=== PATIENT | male | born 1945 | race Caucasian/White ===

== ENCOUNTER → 2022-01-23 | Outpatient (CLI) | payer MEDICARE, BC ==
--- NOTE | 2022-01-23 13:57 | US ---
EXAMINATION TYPE: US kidneys/renal and bladder DATE OF EXAM: 01/23/2022 COMPARISON: NONE CLINICAL HISTORY: R30.0 DYSURIA, R10.30 LOWER ABD PAIN. UTI, pelvic pain, hematuria EXAM MEASUREMENTS: Right Kidney: 11.6 x 4.8 x 4.8 cm Left Kidney: 11.0 x 5.1 x 5.7 cm Right Kidney: No hydronephrosis or masses seen Left Kidney: No hydronephrosis or masses seen Bladder: wnl Bilateral Jets seen: no There is no evidence for hydronephrosis at this point in time. No nephrolithiasis is seen. No ella s are identified. Cortical medullary differentiation is maintained The urinary bladder is anechoic. Bilateral ureteral jets are not seen. IMPRESSION: Unremarkable renal ultrasound
== END | disposition home or self-care (01) ==
LOC: RADUSWWP 12:50
PROVIDERS: ATTEND Family Medicine
DX: R30.0 Dysuria (principal); R10.30 Lower abdominal pain, unspecified
CPT/HCPCS: 76770

== ENCOUNTER 2022-05-05 10:12 | Day surgery (SDC) | payer MEDICARE, BC ==
[2022-05-01 15:58] VITALS: BMI 31.1
[~2022-05-05 10:12] MED LIST: LACTATED RINGERS 1,000 ML IV SCH; SODIUM CHLORIDE 0.9% 1,000 ML IV SCH; ceFAZolin 1 GM in SODIUM CHLORIDE 0.9% IRRIG BTL 250 ML IRRIGATION PRN
[2022-05-05] MEDS ORDERED: IOPAMIDOL-370 50ML BTL MISCELLANE ONE (14:00)
[2022-05-05] MEDS ORDERED: LIDOCAINE 1% INJ 10MG/ML (30 ML VIAL-PF) SQ ONE (14:20)
--- NOTE | 2022-05-05 16:27 | P.EPPROC ---
- EP Procedure Note Electrophysiology Procedure Note: Patient underwent by ventricular pacing with left bundle pacing Left bundle pacing parameters are as follows Unipolar parameters Stim to the peak of the QRS in V6 equals 71 ms QRS width, placed, unipolar equals 155 ms,rsR' With bipolar pacing QR pattern Stimulus to peak of QRS and V6 equals 75 ms
--- NOTE | 2022-05-05 16:34 | P.EPPROC ---
- EP Procedure Note Electrophysiology Procedure Note: Diagnosis 2-1 AV block, advanced AV block with IVCD, heart rates in the 30s Bradycardia, standard pacemaker will result in RV pacing >40% Procedure LV/ biventricular pacemaker implantation with LB pacing Details Patient was brought to the EP lab in a fasting state. Written informed consent was obtained prior to the procedure. Conscious sedation provided by anesthesia team IV antibiotics administered. Local anesthesia administered. A 4 cm incision made in the pectoral area. Subfascial pocket made. Venous access obtained Venous sheaths placed. Leads placed in the right heart. Initially the septal sheath, S 10 was used. However this seemed to be short and would not reach the left bundle area Several attempts were made with this sheath but for left fundal pacing could not be achieved Therefore we switched to the standard His bundle sheath treated with this we will decrease the left bundle area and screwed and successfully Atrial lead position the right atrial appendage. Medtronic screw-in lead Patient was 3.9, good current of injury, 10 V test negative, pacing impedance 627 ohms, pacing threshold 0.75 V at 0.5 ms RV lead position in the RV apex. Medtronic screw-in lead No R waves, pace 30 beats a minute, pacing impedance 893 ohms, oozing threshold 11 warted 0.5 ms Left bundle lead screwed in the left fundal area. Unipolar parameters were as follows Stim to QRS peak in V6 = 71 ms He is QRS width =155 ms rSR' morphology Unipolar pacing parameters for left bundle pacing 532 ohms LB Pacing threshold 0.5 V at 0.5ms In bipolar mode, QRS morphology, stim to QRS speak in lead V6 75 ms Biventricular pacemaker device connected to the leads and placed in the alejandro bfascial pocket Patient tolerated the procedure well without acute complications None adaptive LV-RV offset 80 ms, effective MANAGER SPRING
[2022-05-05] MEDS ORDERED: CHOLECALCIFEROL 25 MCG (1000 IU) TABLET PO SCH (17:30)
[2022-05-05] MEDS ORDERED: ACETAMINOPHEN IV (For NPO) 1,000 MG in EMPTY BAG 1 BAG IVPB ONE (17:30)
[2022-05-05] MEDS: carvediloL 3.125 MG TAB PO SCH (18:23)
[2022-05-05] MEDS ORDERED: PRAVASTATIN SODIUM 80 MG TAB PO SCH (21:00)
[2022-05-05] MEDS ORDERED: LOSARTAN 50 MG TAB PO SCH (21:00)
[2022-05-05] MEDS: ACETAMINOPHEN TAB 325 MG TAB PO PRN (21:04)
[2022-05-06 02:49] VITALS: PULSE 60; RESP 18
[2022-05-06] MEDS: ACETAMINOPHEN TAB 325 MG TAB PO PRN (02:56)
[2022-05-06] MEDS ORDERED: LEVOTHYROXINE 50 MCG TAB PO SCH (06:30)
--- NOTE | 2022-05-06 07:06 | XR ---
EXAMINATION TYPE: XR chest 1V portable DATE OF EXAM: 05/06/2022 COMPARISON: Chest x-ray October 04, 2015 HISTORY: Pacemaker placement TECHNIQUE: Single AP portable frontal upright view of the chest is obtained. FINDINGS: There is new multi lead pacemaker with leads terminating at level of coronary sinus, right atrium, and right ventricle. The lungs remain clear without pneumothorax seen bilaterally. The card iac silhouette size remains within normal limits. Multilevel spurring of thoracic spine redemonstrate d. IMPRESSION: As above.
[2022-05-06 08:23] VITALS: BP 160/85; TEMP 97.7
[2022-05-06] MEDS ORDERED: hydroCHLOROthiazide 25 MG TAB PO SCH (09:00)
[2022-05-06] MEDS ORDERED: carvediloL 6.25 MG TAB PO SCH (09:15)
--- NOTE | 2022-05-06 09:55 | P.DS ---
Providers Attending physician: Tom Velásquez [facility] Course: Patient is doing well. No chest discomfort dizziness or lightheadedness Pacemaker site is healed well. Minimal soakage No hematoma On examination blood pressure is 160/82 mmHg pulse rate in the 60s afebrile Heart sounds are normal Breath sounds are clear Impression Advanced heart block/severe bradycardia Hypertension Status post biventricular pacemaker with left bundle pacing Patient underwent conduction system pacing for advanced heart block Left bundle branch pacing Plan Add carvedilol 6.25 mg twice daily Continue all other medications Discharge home today Chest x-ray is within normal limits Pacemaker interrogation is within normal limits excellent thresholds Follow Dr. Velásquez/Lillian Kimble in 3-4 weeks for hypertension management Follow-up with PCP, Dr. Sommers Patient Condition at Discharge: Stable Plan - Discharge Summary Discharge Rx Participant: No New Discharge Prescriptions: No Action Losartan Potassium [Cozaar] 100 mg PO HS Levothyroxine Sodium [Euthyrox] 50 mcg PO DAILY Cholecalciferol [Vitamin D3 (125 Mcg = 5000 Iu)] 100 mcg PO AC-SUPPER hydroCHLOROthiazide [Hydrodiuril] 25 mg PO DAILY Pravastatin Sodium [Pravachol] 80 mg PO HS Discharge Medication List Losartan Potassium [Cozaar] 100 mg PO HS 04/15/16 [History] Cholecalciferol [Vitamin D3 (125 Mcg = 5000 Iu)] 100 mcg PO AC-SUPPER 10/03/21 [History] Levothyroxine Sodium [Euthyrox] 50 mcg PO DAILY 10/03/21 [History] Pravastatin Sodium [Pravachol] 80 mg PO HS 10/03/21 [History] hydroCHLOROthiazide [Hydrodiuril] 25 mg PO DAILY 10/03/21 [History] Follow up Appointment(s)/Referral(s): Tom Velásquez MD [STAFF PHYSICIAN] - 1 Week (Device clinic follow-up within 7 days Follow-up with Dr. Velásquez/Lillian Kimble in 3-4 weeks for hypertension management Discharge home today new Medication, carvedilol 6.25 mg twice daily ) Activity/Diet/Wound Care/Special Instructions: PATIENT EDUCATION MATERIAL Instructions following a heart rhythm device implant. 1. Keep dressing DRY for 5 DAYS. You may cover the area with Saran or Cling Wrap, prior to a shower. 2. The dressing will be removed in the Device Clinic at [facility]. Absorbable sutures were used to close the wound. 3. Avoid raising the left arm above the shoulder level. 4 week restriction 4. Avoid arm movements, like backscratching, rubbing the head, or pulling on a cord. 4 weeks restriction 5. Gentle range of motion movements of the shoulder, closest to the incision should be performed to avoid a frozen shoulder. (Pendulum exercises of the shoulder) 6. The opposite arm may be used freely. 7. Avoid driving for 7 days. 8. Avoid activities such as golfing, swimming, weed whacking, lifting more than 10 pounds weight, bowling, gymnastics and weight training/lifting. (6 weeks restriction) 9. Activities such as wood chopping with an axe, pull-ups in the gymnasium, power lifting, arc-welding, being close to home induction cooktops will always be a problem. 10. Arm sling is only a reminder not to raise the arm above the head. You do not need to keep the arm completely immobilized. Your free to move the arm and use it and for normal activities. In case of any problems, please call [facility], Michael Sim, @ [phone], Attention: Device Clinic Device clinic follow-up in 5 days Follow-up with primary counterintelligence specialist in 2-3 months New medication Carvedilol 6.25 mg twice daily Discharge Disposition: HOME SELF-CARE
[2022-05-06] MEDS: carvediloL 3.125 MG TAB PO SCH (09:59)
[2022-05-06] MEDS ORDERED: HYDROcodone/APAP 5-325MG 1 EACH TAB PO PRN (10:51)
--- NOTE | 2022-05-06 12:30 | CA ---
Transthoracic Echo Report Name: Godfrey Hagen Age: 76 Gender: M : 1945 Exam Date: 05/06/2022 11:31 Exam Location: [place] [facility] Ht (in): 72 Wt (lb): 229 Ordering Physician: Bebe Gee Attending/Referring Phys: Checkering Machine Operator Cassia Hunt RDCS Procedure CPT: Indications: assess pericardium, s/p PPM, chest pain Cardiac Hx: Technical Quality: Contrast 1: Total Dose (mL): Contrast 2: Total Dose (mL): MEASUREMENTS (Male / Female) Normal Values 2D ECHO LV Diastolic Diameter PLAX 4.2 cm 4.2 - 5.9 / 3.9 - 5.3 cm LV Systolic Diameter PLAX 3.0 cm IVS Diastolic Thickness 1.3 cm 0.6 - 1.0 / 0.6 - 0.9 cm LVPW Diastolic Thickness 1.4 cm 0.6 - 1.0 / 0.6 - 0.9 cm LV Relative Wall Thickness 0.6 FINDINGS Left Ventricle Limited study. Mildly increased left ventricular wall thickness. Left ventricular ejection fraction is estimated at 50-55 %. Right Ventricle Right Atrium Catheter/pacemaker wire in the right atrial cavity. Left Atrium Mitral Valve Aortic Valve Tricuspid Valve Pulmonic Valve Pericardium No pericardial effusion. Aorta CONCLUSIONS Increased LV mass with preserved systolic function No evidence for pericardial effusion Previewed by: Dr. Tom Velásquez MD (Electronically Signed) Final Date: 06 May 2022 12:29
[2022-05-06] MEDS ORDERED: IBUPROFEN 600 MG TAB PO STA (13:09)
[2022-05-06] MEDS ORDERED: COLCHICINE 0.6 MG EACH PO SCH (13:15)
== END 2022-05-06 15:45 | disposition home or self-care (01) ==
LOC: CATHEP 10:12 → 6NMEDSUR 16:21 → CATHEP 05-06 15:45
PROVIDERS: ATTEND Internal Medicine Clinical Cardiac Electrophysiology
DX: I44.1 Atrioventricular block, second degree (principal); R00.1 Bradycardia, unspecified; I47.2 Ventricular tachycardia; E78.5 Hyperlipidemia, unspecified; G47.33 Obstructive sleep apnea (adult) (pediatric); Z98.890 Other specified postprocedural states; I10 Essential (primary) hypertension; Z79.890 Hormone replacement therapy; Z79.899 Other long term (current) drug therapy; Z88.5 Allergy status to narcotic agent; Z80.0 Family history of malignant neoplasm of digestive organs; Z82.49 Family history of ischemic heart disease and other diseases of the circulatory system
CPT/HCPCS: 93308; 33225; 33208; 87635; 71045; C1769 ×4; C2621; C1887; C1892; C1898; J0690 ×2; J2001; J0131; Q9967

== ENCOUNTER 2024-02-10 21:32 | Emergency (ER) | payer MEDICARE, BC ==
[2024-02-10 21:57] VITALS: TEMP 98.4
[2024-02-10] MEDS: SODIUM CHLORIDE 0.9% 1,000 ML IV STA (22:00)
--- NOTE | 2024-02-10 22:03 | ED ---
General Adult HPI - General Chief complaint: Dizziness Stated complaint: dizziness elevated BP NV Time Seen by Provider: 02/10/24 21:39 Source: patient, RN notes reviewed, old records reviewed Mode of arrival: ambulatory Limitations: no limitations - History of Present Illness Initial comments: 78-year-old male presenting with nausea and vomiting. Patient has had symptoms for the past day and a half. No significant abdominal pain. No fever. Patient believes he is dehydrated. He does report that his blood pressure has been elevated. He denies diarrhea. Denies chest pain. Denies focal numbness or weakness. - Related Data Home Medications Medication Instructions Recorded Confirmed Losartan Potassium [Cozaar] 100 mg PO HS 04/15/16 05/05/22 Cholecalciferol [Vitamin D3 (125 100 mcg PO AC-SUPPER 10/03/21 05/01/22 Mcg = 5000 Iu)] Levothyroxine Sodium [Euthyrox] 50 mcg PO DAILY 10/03/21 05/01/22 Pravastatin Sodium [Pravachol] 80 mg PO HS 10/03/21 05/05/22 hydroCHLOROthiazide [Hydrodiuril] 25 mg PO DAILY 10/03/21 05/01/22 Previous Rx's Medication Instructions Recorded carvediloL [Coreg] 6.25 mg PO BID #180 tablet 05/06/22 Allergies Allergy/AdvReac Type Severity Reaction Status Date / Time codeine AdvReac Hallucinations-took Verified 02/10/24 21:37 doses to close to each other Review of Systems ROS Statement: Those systems with pertinent positive or pertinent negative responses have been documented in the HPI. ROS Other: All systems not noted in ROS Statement are negative. Past Medical History Past Medical History: Hearing Disorder / Deafness, Hyperlipidemia, Hypertension, Sleep Apnea/CPAP/BIPAP, Thyroid Disorder Additional Past Medical History / Comment(s): Tachycardia. Lt inguinal hernia, tinnitus, and Vtach. Uses CPAP History of Any Multi-Drug Resistant Organisms: None Reported Past Surgical History: Cardiac Ablation, Hernia Repair Additional Past Surgical History / Comment(s): Rt inguinal hernia. Past Anesthesia/Blood Transfusion Reactions: No Reported Reaction Past Psychological History: No Psychological Hx Reported Smoking Status: Never smoker Past Alcohol Use History: None Reported Past Drug Use History: None Reported - Past Family History Sister(s) Additional Family Medical History / Comment(s): mult medical problems Mother Family Medical History: Cancer Additional Family Medical History / Comment(s): at age 58. General Exam Limitations: no limitations General appearance: alert, in no apparent distress Head exam: Present: atraumatic, normocephalic Eye exam: Present: normal appearance, PERRL, EOMI. Absent: nystagmus ENT exam: Present: mucous membranes dry Neck exam: Present: normal inspection. Absent: tenderness, meningismus Respiratory exam: Present: normal lung sounds bilaterally. Absent: respiratory distress, wheezes Cardiovascular Exam: Present: regular rate, normal rhythm GI/Abdominal exam: Present: soft. Absent: distended, tenderness, guarding Extremities exam: Present: normal inspection, normal capillary refill. Absent: pedal edema Neurological exam: Present: alert, oriented X3, CN II-XII intact, other (No ataxia no focal findings). Absent: motor sensory deficit Psychiatric exam: Present: normal affect, normal mood Skin exam: Present: warm, intact Course Vital Signs 02/10/24 02/10/24 02/10/24 21:34 22:07 23:03 Temperature 98.4 F Pulse Rate 80 70 74 Respiratory 18 17 18 Rate Blood Pressure 184/92 170/86 165/87 O2 Sat by Pulse 97 96 95 Oximetry 02/11/24 00:00 Temperature Pulse Rate 70 Respiratory 17 Rate Blood Pressure 165/93 O2 Sat by Pulse 95 Oximetry - Reevaluation(s) Reevaluation #1: 02/10/24 23:00 Patient care signed out to Dr. Townsend, Medical Decision Making - Medical Decision Making Was pt. sent in by a medical professional or institution (, PA, FLIGHT TEST SHOP MECHANIC, urgent care, hospital, or [facility]...) When possible be specific @ -No Did you speak to anyone other than the patient for history (EMS, parent, family, police, friend...)? What history was obtained from this source @ -No Did you review nursing and triage notes (agree or disagree)? Why? @ -I reviewed and agree with nursing and triage notes Were old charts reviewed (outside hosp., previous admission, EMS record, old EKG, old radiological studies, urgent care reports/EKG's, [facility] records)? Report findings @ -No old charts were reviewed Differential Diagnosis differential Dizziness: Benign paroxysmal positional Vertigo, Menieres disease, otitis media, acoustic neuroma, vertebrobasilar insufficiency, cerebellar stroke, encephalitis, hypovolemic, arrhythmia, coronary artery syndrome, anemia, this is not meant to be an all-inclusive list EKG interpreted by me (3pts min.). @EKG: Paced rhythm rate of 72 FL interval 224, QRS duration 170, QTc 483. X-rays interpreted by me (1pt min.). @ -None done CT interpreted by me (1pt min.). @ -None done U/S interpreted by me (1pt. min.). @ -None done What testing was considered but not performed or refused? (CT, X-rays, U/S, labs)? Why? @ -None What meds were considered but not given or refused? Why? @ -None Did you discuss the management of the patient with other professionals (professionals i.e. , PA, FLIGHT TEST SHOP MECHANIC, lab, RT, psych nurse, director social welfare, template reproduction technician, teacher, fire control officer, caser up)? Give summary @ -No Was smoking cessation discussed for >3mins.? @ -No Was critical care preformed (if so, how long)? @ -No Were there social determinants of health that impacted care today? How? (Homelessness, low income, unemployed, alcoholism, drug addiction, transportation, low edu. Level, literacy, decrease access to med. care, halfway, rehab)? @ -No Was there de-escalation of care discussed even if they declined (Discuss DNR or withdrawal of care, Hospice)? DNR status @ -No What co-morbidities impacted this encounter? (DM, HTN, Smoking, COPD, CAD, Cancer, CVA, ARF, Chemo, Hep., AIDS, mental health diagnosis, sleep apnea, morbid obesity)? @Hypertension, pacemaker Was patient admitted / discharged? Hospital course, mention meds given and route, prescriptions, significant lab abnormalities, going to OR and other pertinent info. @ -78-year-old male presenting with vomiting and dizziness. Symptoms have been present for the past 1 to 2 days. He does admit that he was working outside in the sun. He does feel dehydrated and he appears dehydrated on exam. No focal numbness or weakness. No chest pain. No abdominal pain or tenderness. Patient has mild leukocytosis, otherwise laboratory testing is unremarkable. Given IV fluids in the emergency department and meclizine. Feeling better on reevaluation Care signed out at shift change awaiting re-evaluation. Undiagnosed new problem with uncertain prognosis? @ -No Drug Therapy requiring intensive monitoring for toxicity (Heparin, Nitro, Insulin, Cardizem)? @ -No Were any procedures done? @ -No Diagnosis/symptom? @ -Dehydration, vomiting Acute, or Chronic, or Acute on Chronic? @ -Acute Uncomplicated (without systemic symptoms) or Complicated (systemic symptoms)? @ -Default Side effects of treatment? @ -No Exacerbation, Progression, or Severe Exacerbation? @ -No Poses a threat to life or bodily function? How? (Chest pain, [place], [place], pneumonia, PE, COPD, DKA, ARF, appy, cholecystitis, CVA, Diverticulitis, Homicidal, Suic idal, threat to staff... and all critical care pts) @ -No - Lab Data Result diagrams: 02/10/24 22:00 02/10/24 22:00 Lab Results 02/10/24 02/10/24 02/10/24 Range/Units 22:00 22:00 22:00 WBC 11.3 H (3.8-10.6) k/uL RBC 5.19 (4.30-5.90) m/uL Hgb 16.2 (13.0-17.5) gm/dL Hct 47.9 (39.0-53.0) % MCV 92.4 (80.0-100.0) fL MCH 31.1 (25.0-35.0) pg MCHC 33.7 (31.0-37.0) g/dL RDW 12.6 (11.5-15.5) % Plt Count 243 (150-450) k/uL MPV 8.3 Neutrophils % 80 % Lymphocytes % 12 % Monocytes % 5 % Eosinophils % 1 % Basophils % 1 % Neutrophils # 9.0 H (1.3-7.7) k/uL Lymphocytes # 1.4 (1.0-4.8) k/uL Monocytes # 0.6 (0-1.0) k/uL Eosinophils # 0.1 (0-0.7) k/uL Basophils # 0.1 (0-0.2) k/uL PT 10.7 (10.0-12.5) sec INR 1.0 (<1.2) APTT 23.9 (22.0-30.0) sec Sodium 138 (137-145) mmol/L Potassium 3.7 (3.5-5.1) mmol/L Chloride 103 (98-107) mmol/L Carbon Dioxide 27 (22-30) mmol/L Anion Gap 8 mmol/L BUN 19 (9-20) mg/dL Creatinine 0.81 (0.66-1.25) mg/dL Est GFR (CKD-EPI)AfAm >90 (>60 ml/min/1.73 sqM) Est GFR (CKD-EPI)NonAf 85 (>60 ml/min/1.73 sqM) Glucose 126 H (74-99) mg/dL Calcium 10.0 (8.4-10.2) mg/dL Magnesium 2.1 (1.6-2.3) mg/dL Total Bilirubin 1.6 H (0.2-1.3) mg/dL AST 31 (17-59) U/L ALT 26 (4-49) U/L Alkaline Phosphatase 95 (38-126) U/L Troponin I (0.000-0.034) ng/mL Total Protein 7.9 (6.3-8.2) g/dL Albumin 4.5 (3.5-5.0) g/dL 02/10/24 Range/Units 22:00 WBC (3.8-10.6) k/uL RBC (4.30-5.90) m/uL Hgb (13.0-17.5) gm/dL Hct (39.0-53.0) % MCV (80.0-100.0) fL MCH (25.0-35.0) pg MCHC (31.0-37.0) g/dL RDW (11.5-15.5) % Plt Count (150-450) k/uL MPV Neutrophils % % Lymphocytes % % Monocytes % % Eosinophils % % Basophils % % Neutrophils # (1.3-7.7) k/uL Lymphocytes # (1.0-4.8) k/uL Monocytes # (0-1.0) k/uL Eosinophils # (0-0.7) k/uL Basophils # (0-0.2) k/uL PT (10.0-12.5) sec INR (<1.2) APTT (22.0-30.0) sec Sodium (137-145) mmol/L Potassium (3.5-5.1) mmol/L Chloride (98-107) mmol/L Carbon Dioxide (22-30) mmol/L Anion Gap mmol/L BUN (9-20) mg/dL Creatinine (0.66-1.25) mg/dL Est GFR (CKD-EPI)AfAm (>60 ml/min/1.73 sqM) Est GFR (CKD-EPI)NonAf (>60 ml/min/1.73 sqM) Glucose (74-99) mg/dL Calcium (8.4-10.2) mg/dL Magnesium (1.6-2.3) mg/dL Total Bilirubin (0.2-1.3) mg/dL AST (17-59) U/L ALT (4-49) U/L Alkaline Phosphatase (38-126) U/L Troponin I <0.012 (0.000-0.034) ng/mL Total Protein (6.3-8.2) g/dL Albumin (3.5-5.0) g/dL Disposition Clinical Impression: Dehydration Disposition: HOME SELF-CARE Condition: Fair Instructions (If sedation given, give patient instructions): Dizziness (ED) Is patient prescribed a controlled substance at d/c from ED?: No Referrals: Arnie Sommers DO [Primary Care Provider] - 1-2 days
[2024-02-10 22:16] LABS: Basophils # (A) 0.1 k/uL (0-0.2); Basophils % (A) 1 %; Eosinophils # (A) 0.1 k/uL (0-0.7); Eosinophils % (A) 1 %; HCT 47.9 % (39.0-53.0); HGB 16.2 gm/dL (13.0-17.5); Lymphocytes # (A) 1.4 k/uL (1.0-4.8); Lymphocytes % (A) 12 %; MCH 31.1 pg (25.0-35.0); MCHC 33.7 g/dL (31.0-37.0); MCV 92.4 fL (80.0-100.0); Mean Platelet Volume 8.3; Monocytes # (A) 0.6 k/uL (0-1.0); Monocytes % (A) 5 %; Neutrophils % (A) 80 %; Platelet Count 243 k/uL (150-450); RBC 5.19 m/uL (4.30-5.90); RDW 12.6 % (11.5-15.5); WBC 11.3 k/uL (3.8-10.6)
[2024-02-10 22:25] LABS: Partial Thromboplastin Time 23.9 sec (22.0-30.0); Prothrombin Time 10.7 sec (10.0-12.5)
[2024-02-10 22:36] LABS: ALT 26 U/L (4-49); AST 31 U/L (17-59); African American GFR (CKD) >90 (>60 ml/min/1.73 sqM); Albumin 4.5 g/dL (3.5-5.0); Alkaline Phosphatase 95 U/L (38-126); Anion Gap 8 mmol/L; Blood Urea Nitrogen 19 mg/dL (9-20); Carbon Dioxide 27 mmol/L (22-30); Chloride 103 mmol/L (98-107); Glucose 126 mg/dL (74-99); Magnesium 2.1 mg/dL (1.6-2.3); Non-African American GFR(CKD) 85 (>60 ml/min/1.73 sqM); Potassium 3.7 mmol/L (3.5-5.1); Sodium 138 mmol/L (137-145); Total Bilirubin 1.6 mg/dL (0.2-1.3); Total Protein 7.9 g/dL (6.3-8.2)
[2024-02-10] MEDS: MECLIZINE 12.5 MG TAB PO STA (23:02)
[2024-02-11 00:55] VITALS: BP 165/93; PULSE 70; RESP 17
== END 2024-02-11 00:06 | disposition home or self-care (01) ==
LOC: EC 21:32
DX: E86.0 Dehydration (principal); Z88.5 Allergy status to narcotic agent
CPT/HCPCS: 36415; 80053; 83735; 84484; 85025; 85610; 85730; 93005; 96360; 99284

== ENCOUNTER 2025-04-15 14:27 | Emergency (ER) | payer MEDICARE, BC ==
--- NOTE | 2025-04-15 15:00 | ED ---
Syncope HPI - General Chief Complaint: Syncope Stated Complaint: Syncope Time Seen by Provider: 04/15/25 14:43 Source: patient, EMS, RN notes reviewed Mode of arrival: EMS - History of Present Illness Initial Comments: This is an 79-year-old male who presents to the emergency department for a syncopal episode. 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 States that he drank a beer and started feeling very overheated. He then went to go sit down and ended up passing out. Denies hitting his head or sustaining any injuries. States that he did vomit shortly afterwards but does not currently feel nauseous. Believes that he just got dehydrated which was made even worse after drinking beer. States that he just feels weak, but denies any dizziness, headaches, chest pain, or shortness of breath. He does have a history of vasovagal episodes. MD Complaint: loss of consciousness - Related Data Home Medications Medication Instructions Recorded Confirmed Losartan Potassium [Cozaar] 100 mg PO HS 04/15/16 05/05/22 Cholecalciferol [Vitamin D3 (125 100 mcg PO AC-SUPPER 10/03/21 05/01/22 Mcg = 5000 Iu)] Levothyroxine Sodium [Euthyrox] 50 mcg PO DAILY 10/03/21 05/01/22 Pravastatin Sodium [Pravachol] 80 mg PO HS 10/03/21 05/05/22 hydroCHLOROthiazide [Hydrodiuril] 25 mg PO DAILY 10/03/21 05/01/22 Previous Rx's Medication Instructions Recorded carvediloL [Coreg] 6.25 mg PO BID #180 tablet 05/06/22 Allergies Allergy/AdvReac Type Severity Reaction Status Date / Time codeine AdvReac Hallucinations-took Verified 04/15/25 14:40 doses to close to each other Review of Systems ROS Statement: Those systems with pertinent positive or pertinent negative responses have been documented in the HPI. ROS Other: All systems not noted in ROS Statement are negative. Past Medical History Past Medical History: Hearing Disorder / Deafness, Hyperlipidemia, Hypertension, Sleep Apnea/CPAP/BIPAP, Thyroid Disorder Additional Past Medical History / Comment(s): Tachycardia. Lt inguinal hernia, tinnitus, and Vtach. Uses CPAP History of Any Multi-Drug Resistant Organisms: None Reported Past Surgical History: Cardiac Ablation, Hernia Repair Additional Past Surgical History / Comment(s): Rt inguinal hernia. Past Anesthesia/Blood Transfusion Reactions: No Reported Reaction Past Psychological History: No Psychological Hx Reported Smoking Status: Never smoker Past Alcohol Use History: Rare Past Drug Use History: None Reported - Past Family History Sister(s) Additional Family Medical History / Comment(s): mult medical problems Mother Family Medical History: Cancer Additional Family Medical History / Comment(s): at age 58. General Exam Limitations: no limitations General appearance: alert, in no apparent distress Head exam: Present: atraumatic, normocephalic, normal inspection Eye exam: Present: normal appearance, PERRL, EOMI. Absent: scleral icterus, conjunctival injection, periorbital swelling Respiratory exam: Present: normal lung sounds bilaterally. Absent: respiratory distress, wheezes, rales, rhonchi, stridor Cardiovascular Exam: Present: regular rate, normal rhythm Neurological exam: Present: alert, oriented X3, CN II-XII intact Psychiatric exam: Present: normal affect, normal mood Skin exam: Present: warm, dry, intact, normal color. Absent: rash Course Vital Signs 04/15/25 04/15/25 04/15/25 14:33 15:59 17:24 Temperature 98.2 F 97.7 F 98.6 F Pulse Rate 66 75 Pulse Rate [ 75 Pulse Oximetery ] Respiratory 20 19 18 Rate Blood Pressure 116/64 128/67 Blood Pressure 138/80 [Left Arm Sitting] Blood Pressure 141/76 [Left Arm Standing] Blood Pressure 142/72 [Left Arm Supine] O2 Sat by Pulse 98 100 98 Oximetry Medical Decision Making - Medical Decision Making This is an 79-year-old male who presents to the emergency department for a syncopal episode. Was pt. sent in by a medical professional or institution? @ -No Did you speak to anyone other than the patient for history? @ -No Did you review nursing and triage notes? @ -Yes, and I agree, it is accurate with regards to the patient's symptoms. Were old charts reviewed? @ -No Differential Diagnosis? @ -Differential Syncope: Valvular disease, hypertrophic cardiomyopathy, pulmonary embolism, tamponade, tachycardia, bradycardia, MA, hypovolemia, hemorrhage, dissection, anemia, intracranial hemorrhage, seizure, hypoglycemia, carbon monoxide poisoning, this is not meant to be an all-inclusive list. EKG interpreted by me (3pts min.)? @ -EKG interpreted by me demonstrating the following: Electronic ventricular pacemaker. Ventricular rate 63 bpm, AL interval 212 ms, QRS duration 178 ms, QTc 517 ms. X-rays interpreted by me (1pt min.)? @ -Chest x-ray obtained, my interpretation identifies no localized consolidations or infiltrates. CT interpreted by me (1pt min.)? @ -Not obtained U/S interpreted by me (1pt. min.)? @ -Not obtained What testing was considered but not performed? (CT, X-rays, U/S, labs)? Why? @ -None What meds were considered but not given? Why? @ -None Did you discuss the management of the patient with other professionals? @ -No Did you reconcile home meds? @ -No Was smoking cessation discussed for >3mins.? @ -No Was critical care preformed (if so, how long)? @ -No Were there social determinants of health that impacted care today? How? (Homelessness, low income, unemployed, alcoholism, drug addiction, transportation, low edu. Level, literacy, decrease access to med. care, nursing home, rehab)? @ -No Was there de-escalation of care discussed even if they declined? (Discuss DNR or withdrawal of care, Hospice)? @ -No What co-morbidities impacted this encounter? (DM, HTN, Smoking, COPD, CAD, Cancer, CVA, Hep., AIDS, mental health diagnosis, sleep apnea, morbid obesity)? @ -HLD, HTN Was patient admitted / discharged? @ -Discharged. Lab work unremarkable. Urinalysis negative for signs of infection. Orthostatics negative. Chest x-ray reveals no acute process. Patient treated with IV fluids. On reevaluation he was overall feeling much better. He does have a history of syncopal episodes and when discussing disposition patient states that he would much rather go home. Advised close follow-up with his PCP and strict return parameters were discussed. Patient discharged home in stable condition. Case discussed with ED attending Dr. Daugherty. Return precautions reviewed in depth, the patient is instructed to return to the emergency department with any new, worsening, or concerning symptoms. Patient verbalized understanding. Undiagnosed new problem with uncertain prognosis? @ -None Drug Therapy requiring intensive monitoring for toxicity (Heparin, Nitro, Insulin, Cardizem)? @ -None Were any procedures done? @ -None Diagnosis/symptom? @ -Syncope Acute, or Chronic, or Acute on Chronic? @ -Acute Uncomplicated (without systemic symptoms) or Complicated (systemic symptoms)? @ -Uncomplicated Side effects of treatment? @ -None Exacerbation, Progression, or Severe Exacerbation] @ -Not applicable Poses a threat to life or bodily function? @ -No - Lab Data Result diagrams: 04/15/25 15:37 04/15/25 15:18 Lab Results 04/15/25 04/15/25 04/15/25 Range/Units 15:18 15:18 15:37 WBC 8.70 (4.50-10.00) 10*3/uL RBC 4.24 L (4.40-5.60) 10*6/uL Hgb 13.2 (13.0-17.0) g/dL Hct 38.3 L (39.6-50.0) % MCV 90.3 (80.0-97.0) fL MCH 31.1 (27.0-32.0) pg MCHC 34.5 (32.0-37.0) g/dL Plt Count 166 (140-440) 10*3/uL MPV 12.0 (9.5-12.2) fL Immature Gran % (Auto) 0.3 % Neutrophils % 80.3 % Lymphocytes % 11.5 % Monocytes % 6.9 % Eosinophils % 0.7 % Basophils % 0.3 % Immature Gran # 0.03 (0.00-0.04) 10*3/uL Neutrophils # 6.98 (1.80-7.70) 10*3/uL Lymphocytes # 1.00 (0.90-5.00) 10*3/uL Monocytes # 0.60 (0.20-1.00) 10*3/uL Eosinophils # 0.06 (0.04-0.35) 10*3/uL Basophils # 0.03 (0.00-0.10) 10*3/uL PT (10.0-12.5) sec INR (<1.2) APTT (22.0-30.0) sec Sodium 139 (137-145) mmol/L Potassium 4.4 (3.5-5.1) mmol/L Chloride 109 H (98-107) mmol/L Carbon Dioxide 21 L (22-30) mmol/L Anion Gap 9 mmol/L BUN 19 (9-20) mg/dL Creatinine 1.08 (0.66-1.25) mg/dL Est GFR (CKD-EPI)AfAm 75 (>60 ml/min/1.73 sqM) Est GFR (CKD-EPI)NonAf 64 (>60 ml/min/1.73 sqM) Glucose 112 H (74-99) mg/dL Calcium 9.3 (8.4-10.2) mg/dL Magnesium 2.1 (1.6-2.3) mg/dL Total Bilirubin 1.2 (0.2-1.3) mg/dL AST 31 (17-59) U/L ALT 36 (4-49) U/L Alkaline Phosphatase 73 (38-126) U/L Troponin I <0.012 (0.000-0.034) ng/mL Total Protein 6.1 L (6.3-8.2) g/dL Albumin 3.5 (3.5-5.0) g/dL TSH 1.650 (0.465-4.680) mIU/L Urine Color Urine Appearance (Clear) Urine pH (5.0-8.0) Ur Specific [place] (1.001-1.035) Urine Protein (Negative) Urine Glucose (UA) (Negative) Urine Ketones (Negative) Urine Blood (Negative) Urine Nitrite (Negative) Urine Bilirubin (Negative) Urine Urobilinogen (<2.0) mg/dL Ur Leukocyte Esterase (Negative) Urine RBC (0-5) /hpf Urine WBC (0-5) /hpf Ur Squamous Epith Cells (0-4) /hpf Hyaline Casts (0-2) /lpf Urine Mucus (None) /hpf Serum Alcohol <10 mg/dL 04/15/25 04/15/25 Range/Units 17:06 17:14 WBC (4.50-10.00) 10*3/uL RBC (4.40-5.60) 10*6/uL Hgb (13.0-17.0) g/dL Hct (39.6-50.0) % MCV (80.0-97.0) fL MCH (27.0-32.0) pg MCHC (32.0-37.0) g/dL Plt Count (140-440) 10*3/uL MPV (9.5-12.2) fL Immature Gran % (Auto) % Neutrophils % % Lymphocytes % % Monocytes % % Eosinophils % % Basophils % % Immature Gran # (0.00-0.04) 10*3/uL Neutrophils # (1.80-7.70) 10*3/uL Lymphocytes # (0.90-5.00) 10*3/uL Monocytes # (0.20-1.00) 10*3/uL Eosinophils # (0.04-0.35) 10*3/uL Basophils # (0.00-0.10) 10*3/uL PT 12.0 (10.0-12.5) sec INR 1.1 (<1.2) APTT 23.0 (22.0-30.0) sec Sodium (137-145) mmol/L Potassium (3.5-5.1) mmol/L Chloride (98-107) mmol/L Carbon Dioxide (22-30) mmol/L Anion Gap mmol/L BUN (9-20) mg/dL Creatinine (0.66-1.25) mg/dL Est GFR (CKD-EPI)AfAm (>60 ml/min/1.73 sqM) Est GFR (CKD-EPI)NonAf (>60 ml/min/1.73 sqM) Glucose (74-99) mg/dL Calcium (8.4-10.2) mg/dL Magnesium (1.6-2.3) mg/dL Total Bilirubin (0.2-1.3) mg/dL AST (17-59) U/L ALT (4-49) U/L Alkaline Phosphatase (38-126) U/L Troponin I (0.000-0.034) ng/mL Total Protein (6.3-8.2) g/dL Albumin (3.5-5.0) g/dL TSH (0.465-4.680) mIU/L Urine Color Yellow Urine Appearance Clear (Clear) Urine pH 7.0 (5.0-8.0) Ur Specific [place] 1.023 (1.001-1.035) Urine Protein Trace H (Negative) Urine Glucose (UA) Negative (Negative) Urine Ketones 1+ H (Negative) Urine Blood Negative (Negative) Urine Nitrite Negative (Negative) Urine Bilirubin Negative (Negative) Urine Urobilinogen <2.0 (<2.0) mg/dL Ur Leukocyte Esterase Trace H (Negative) Urine RBC 1 (0-5) /hpf Urine WBC 2 (0-5) /hpf Ur Squamous Epith Cells 1 (0-4) /hpf Hyaline Casts 45 H (0-2) /lpf Urine Mucus Occasional H (None) /hpf Serum Alcohol mg/dL - Radiology Data Radiology results: report reviewed, image reviewed Disposition Clinical Impression: Syncope Disposition: HOME SELF-CARE Instructions (If sedation given, give patient instructions): Heat Exhaustion (ED), Syncope (ED) Additional Instructions: Return to the emergency department with any new, worsening, or concerning symptoms. Follow up with your primary care provider in 1-2 days. Is patient prescribed a controlled substance at d/c from ED?: No Referrals: Arnie Sommers DO [Primary Care Provider] - 1-2 days Time of Disposition: 17:44
[2025-04-15 15:38] LABS: ALT 36 U/L (4-49); AST 31 U/L (17-59); African American GFR (CKD) 75 (>60 ml/min/1.73 sqM); Albumin 3.5 g/dL (3.5-5.0); Alkaline Phosphatase 73 U/L (38-126); Anion Gap 9 mmol/L; Blood Urea Nitrogen 19 mg/dL (9-20); Calcium 9.3 mg/dL (8.4-10.2); Carbon Dioxide 21 mmol/L (22-30); Chloride 109 mmol/L (98-107); Glucose 112 mg/dL (74-99); Magnesium 2.1 mg/dL (1.6-2.3); Non-African American GFR(CKD) 64 (>60 ml/min/1.73 sqM); Potassium 4.4 mmol/L (3.5-5.1); Sodium 139 mmol/L (137-145); Total Protein 6.1 g/dL (6.3-8.2)
[2025-04-15] MEDS: SODIUM CHLORIDE 0.9% 1,000 ML IV STA (15:57)
[2025-04-15 16:04] VITALS: PULSE 75
[2025-04-15 16:12] LABS: Basophils # (A) 0.03 10*3/uL (0.00-0.10); Basophils % (A) 0.3 %; Eosinophils # (A) 0.06 10*3/uL (0.04-0.35); Eosinophils % (A) 0.7 %; HCT 38.3 % (39.6-50.0); HGB 13.2 g/dL (13.0-17.0); Lymphocytes # (A) 1.00 10*3/uL (0.90-5.00); Lymphocytes % (A) 11.5 %; MCH 31.1 pg (27.0-32.0); MCHC 34.5 g/dL (32.0-37.0); MCV 90.3 fL (80.0-97.0); Monocytes # (A) 0.60 10*3/uL (0.20-1.00); Monocytes % (A) 6.9 %; Neutrophils # (A) 6.98 10*3/uL (1.80-7.70); Neutrophils % (A) 80.3 %; Platelet Count 166 10*3/uL (140-440); RBC 4.24 10*6/uL (4.40-5.60); RDW 12.5 % (11.5-14.5); WBC 8.70 10*3/uL (4.50-10.00)
--- NOTE | 2025-04-15 16:23 | XR ---
EXAMINATION TYPE: XR chest 2V DATE OF EXAM: 04/15/2025 4:15 PM COMPARISON: Chest radiographs from 05/06/2022 TECHNIQUE: XR chest 2V Frontal and lateral views of the chest. CLINICAL INDICATION:Male, 79 years old with history of syncope; FINDINGS: Lungs/Pleura: There is no evidence of pleural effusion, focal consolidation, or pneumothorax. Flatte serjio of the hemidiaphragms. Pulmonary vascularity: Unremarkable. Heart/mediastinum: Cardiomediastinal silhouette is unremarkable. Two lead cardiac conduction device o verlying the left hemithorax with lead tips projecting over the right ventricle and right atrium. Musculoskeletal: Multiple level degenerative disc disease changes seen throughout the spine. IMPRESSION: 1. No acute cardiopulmonary disease/process. 2. Possible COPD. [facility], , 04/15/2025 4:21 PM
[2025-04-15 17:26] VITALS: BP 142/72; RESP 18; TEMP 98.6
[2025-04-15 17:34] LABS: Bilirubin,Urine Negative (Negative); Blood,Urine Negative (Negative); Color,Urine Yellow; Glucose,Urine (UA) Negative (Negative); Hyaline Casts,Urine 45 /lpf (0-2); Ketones,Urine 1+ (Negative); Leukocyte Esterase,Urine Trace (Negative); Mucus,Urine Occasional /hpf; Nitrite,Urine Negative (Negative); PH, Urine 7.0 (5.0-8.0); Protein,Urine Trace (Negative); RBC,Urine 1 /hpf (0-5); Specific Gravity,Urine 1.023 (1.001-1.035); Squamous Epithelial Cell,Urine 1 /hpf (0-4); Urobilinogen,Urine <2.0 mg/dL (<2.0); WBC,Urine 2 /hpf (0-5)
[2025-04-15 17:41] LABS: INR 1.1 (<1.2); Partial Thromboplastin Time 23.0 sec (22.0-30.0); Prothrombin Time 12.0 sec (10.0-12.5)
== END 2025-04-15 17:59 | disposition home or self-care (01) ==
LOC: EC 14:27
DX: R55 Syncope and collapse (principal); Z88.5 Allergy status to narcotic agent; E78.5 Hyperlipidemia, unspecified; I10 Essential (primary) hypertension
CPT/HCPCS: 36415; 93005; 80053; 84443; 83735; 84484; 85025; 85610; 85730; 81001; 71046; 99284; 96360; G0480; 80320